=== PATIENT | male | born 1960 | race African-American/Black ===

== ENCOUNTER 2018-04-18 06:39 | Emergency (ER) | payer MEDICAID ==
[~2018-04-18] VITALS: Ht 180.3 cm; Wt 95.3 kg
[2018-04-18] MEDS ORDERED: KETOROLAC TROMETH 60MG/2ML VIAL IM ONE (09:00)
[2018-04-18 09:11] VITALS: BP 108/67
== END 2018-04-18 09:32 | disposition home or self-care (01) ==
LOC: ER 06:39
DX: S46.911A Strain of unspecified muscle, fascia and tendon at shoulder and upper arm level, right arm, initial encounter (principal); Z88.0 Allergy status to penicillin; X50.0XXA Overexertion from strenuous movement or load, initial encounter; Y93.89 Activity, other specified; Y92.89 Other specified places as the place of occurrence of the external cause; Y99.8 Other external cause status
CPT/HCPCS: 73030; 96372; 99284; J1885